=== PATIENT | male | born 2000 | race Caucasian/White ===

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

== ENCOUNTER 2021-07-10 07:20 | Emergency (ER) | payer BC, SELFPAY ==
[2021-07-10 07:21] VITALS: BP 137/86; PULSE 65; RESP 14; TEMP 36.2; O2SAT 100; BMI 22.7
--- NOTE | 2021-07-10 07:31 | RAD_ITS ---
STUDY: X-RAY - LEFT ANKLE REASON FOR EXAM: Male, 21 years old. ankle pain TECHNIQUE: 3 view(s) of the ankle. COMPARISON: None. FINDINGS: Normal visualized distal tibia and fibula. Acute nondisplaced oblique fracture through the base the medial malleolus the tibia. CT would be useful. Normal tibiotalar articulation and ankle mortise. Normal visualized talus and calcaneus. The visualized subtalar, talonavicular, calcaneocuboid and tarsal articulations are normal. The soft tissue structures are unremarkable. RAD/Ankle min 3 Views IMPRESSION: Acute nondisplaced oblique fracture the base the medial malleolus the tibia and CT would be useful. Electronically Signed: Vinicio Tobar MD at 8:07 EST Tel , Service support ,
--- NOTE | 2021-07-10 07:34 | ED.VIS.LOWEX ---
HPI History of Present Illness Chief Complaint: Lower Extremity Injury Narrative Narrative: 21-year-old male presenting with left ankle pain. Is in the medial aspect of his left ankle. He states that last night while he was playing hockey he blocked a pop with his ankle inadvertently. He states he was able to ambulate on this last night but then woke up at 3 in the morning with pain in the ankle. Patient states he had to crawl to the bathroom. He is not taking anything for pain this morning. He denies any numbness or tingling. PFSH PFSH Home Medications hydrocodone-acetaminophen 1 tab PO Q6H PRN PRN 3 Days #12 tablet 07/10/21 [Rx Last Taken Unknown] Allergy/AdvReac Type Severity Reaction Status Date / Time amoxicillin Allergy Hives Verified 07/10/21 07:22 Surgical History Hx of hernia repair Social History Smoking Status: Never smoker ROS ROS ED Constitutional Constitutional ED: Denies chills or fever(s) Eyes Eyes: Denies blurry vision or change in vision ENT ENT ED: Denies rhinorrhea Cardiovascular Cardiovascular: Denies chest pain or palpitations Respiratory/Chest Respiratory/Chest: Denies cough or dyspnea Gastrointestinal Gastrointestinal: Denies abdominal pain, nausea or vomiting Genitourinary Genitourinary ED: Denies dysuria or hematuria Musculoskeletal Musculoskeletal: Reports other Details: Left ankle pain Integumentary Denies Abrasions or rash Neurologic Neurologic: Denies headache(s) or paresthesias EXAM Physical Exam Const Vital Signs: 07/10/21 07:21 07/10/21 09:30 Temperature 97.1 F L Temperature Source Temporal Pulse Rate 65 Respiratory Rate 14 16 Blood Pressure 137/86 H Blood Pressure Mean 103 Pulse Ox 100 Oxygen Delivery Method Room Air Positive well nourished General Appearance ED: NAD HEENT normocephalic and atraumatic Eyes PERRL Resp normal respiratory effort Extremity Extremity Narrative: Tenderness palpation over the left medial malleolus without swelling, ecchymosis, deformity. Left foot neurovascular intact with cap refill all 5 toes. Neuro oriented x3 Sensorium / Orientation: alert Skin Lesions: no lesions Rashes: no rashes MDM MDM MDM Narrative Medical decision making narrative: 21-year-old male presenting with left medial malleolus pain. He states he was struck in the ankle with a hockey puck while playing last night. Patient states that he was able to ambulate last night but now is unable to. He woke up at 3 in the morning with pain. Is not take anything for pain. Physically on examination there appears to be no bruising or swelling but I did obtain an x-ray of the left ankle and there is an acute nondisplaced fracture of the medial malleolus on my interpretation. The radiologist does agree. Patient was discussed with Dr. Rossi who recommended nonweightbearing with the walking boot as well as crutches. This was discussed with the patient. Apparently the patient is from out of town and will obtain follow-up after he gets home. Patient was given [place] for pain. Patient discharged home in stable condition. Impression: 1. Left medial malleolus fracture Radiography Diagnostic Testing: Clinical Impression(s) from Imaging Studies Ankle X-Ray 07/10/21 07:31 IMPRESSION: Acute nondisplaced oblique fracture the base the medial malleolus the tibia and CT would be useful. Electronically Signed: Vinicio Tobar MD at 8:07 EST Tel , Service support , Discharge Plan Triage Chief Complaint: Lower Extremity Injury ED Provider: Kashif Banks Dx/Rx/DC Orders Instructions: ED Fracture, Lower Extremity Prescriptions: New hydrocodone-acetaminophen 5-325 mg tablet 1 tab PO Q6H PRN PRN (Reason: Pain) 3 Days Qty: 12 RF: 0 Referrals: PRASHANT EVANS [Other] Eddie Rossi DPM [STAFF PHYSICIAN] - 3-5 Days Disposition Disposition: Home, Self Care Discharge Date/Time: 07/10/21 09:32
[2021-07-10] MEDS: Naproxen 500 MG Tablet PO (07:37)
[2021-07-10] MEDS: HYDROcodone Bitartrate/Apap 5/325 Tablet PO (08:49)
[2021-07-10 09:30] VITALS: RESP 16
--- NOTE | 2021-07-10 09:31 | ED.RN ---
REVIEWED D/C INSTRUCTIONS, FOLLOW UP CARE, PRESCRIPTION, AND S/S THAT WOULD WARRANT A RETURN TO THE ED WITH PT. PT VERBALIZED AN UNDERSTANDING AND DENIES FURTHER QUESTIONS FOR THIS RN. PT SKIN P/W/D, RESP EVEN AND UNLABORED, PT A&O X 3, NO DISTRESS NOTED. PT AMBULATED OUT OF ED USING CRUTCHES, GAIT STEADY.
== END 2021-07-10 09:32 | disposition home or self-care (01) ==
PROVIDERS: Emergency Provider Student in an Organized Health Care Education/Training Program
DX: S82.52XA Displaced fracture of medial malleolus of left tibia, initial encounter for closed fracture (principal); Y93.22 Activity, ice hockey
CPT/HCPCS: 73610; 99284